=== PATIENT | female | born 1965 | race Caucasian/White ===

== ENCOUNTER 2016-10-15 20:01 | Emergency (ER) | payer MEDICARE, OTHER ==
[~2016-10-15 20:01] MED LIST: ATEN25 PO; ATEN50 PO; BENICAR20 PO; CALTRA600D PO; FANAPT6 MG PO; FLEX PO; LAMICTAL10 PO; LAMICTAL150 MG PO; LEVAQUIN750 MG PO; MAXIDONE PO; SAPHRIS10 MG SL; VITAMIN B12 PO; X5 PO; XANAX1 MG PO
== END 2016-10-15 20:30 | disposition home or self-care (01) ==
LOC: ER 20:01
DX: M79.672 Pain in left foot (principal); Z88.6 Allergy status to analgesic agent; Z88.0 Allergy status to penicillin; Z88.8 Allergy status to other drugs, medicaments and biological substances; Z88.1 Allergy status to other antibiotic agents; Z79.899 Other long term (current) drug therapy
CPT/HCPCS: 73630-LT; 99284; A9270-GY